=== PATIENT | male | born 1985 | race African-American/Black ===

== ENCOUNTER 2021-11-24 03:07 | Emergency (ER) | payer SELFPAY ==
[2021-11-24] VITALS (11 sets, daily range): BP systolic 100–150; BP diastolic 67–108; PULSE 82–104; RESP 13–21; TEMP 36.2; O2SAT 93–97
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
--- NOTE | 2021-11-24 03:14 | ECG_ITS ---
Measurements Intervals [place] Rate: 91 P: 11 TN: 171 QRS: 85 QRSD: 89 T: 14 QT: 352 QTc: 435 Interpretive Statements SINUS RHYTHM LEFT ATRIAL ENLARGEMENT [-0.15mV P WAVE IN V1/V2] LEFT VENTRICULAR HYPERTROPHY ST ELEVATION CONSISTENT WITH EARLY REPOLARIZATION ABNORMAL ECG Electronically Signed On 11-24-2021 11:07:17 CDT by Guero Roberts M.D.
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
--- NOTE | 2021-11-24 03:18 | PC.NURSE ---
Bedside glucose is 111.
[2021-11-24 03:21] LABS: Glucose Point of Care 111 mg/dl (65-105)
[2021-11-24] MEDS: THIAMINE HCL 200 MG/2 ML VIAL 100 MG IV PUSH (03:26)
[2021-11-24] MEDS: SODIUM CHLORIDE 0.9% IV 1,000 ML 999 ML IV CONT (03:26)
--- NOTE | 2021-11-24 03:29 | PC.NURSE ---
Patient taken to CT.
[2021-11-24 03:36] LABS: Basophils Absolute Auto 0.1 K/mm3 (0.0-0.1); Basophils Percent Auto 0.6 % (0.2-1.2); Eosinophils Absolute Auto 0.1 K/mm3 (0-0.3); Eosinophils Percent Auto 0.8 % (0-4.4); Hematocrit 40.5 % (42.0-52.0); Hemoglobin 13.7 g/dL (14.0-18.0); Immature Granulocyte Absolute 0.02 K/mm3 (0.00-0.031); Immature Granulocyte Percent A 0.3 % (0-0.5); Lymphocytes Absolute Auto 1.75 K/mm3 (0.9-3.2); Lymphocytes Percent Auto 22.1 % (18.3-44.2); Mean Corpuscular HGB Conc 33.8 g/dl (32-36); Mean Corpuscular Volume 91.6 fl (80-100); Mean Platelet Volume 8.8 fl (7.4-10.4); Monocytes Absolute Auto 0.6 K/mm3 (0.1-0.6); Monocytes Percent Auto 7.1 % (2.6-8.5); Neutrophils Absolute Auto 5.5 K/mm3 (1.3-6.7); Neutrophils Percent Auto 69.1 % (45.5-73.1); Platelet Count Result 256 k/mm3 (150-375); Red Blood Count 4.42 M/mm3 (4.6-6.20); Red Cell Distribution Width 14.8 % (11.5-14.5); White Blood Count 7.9 K/mm3 (4.5-10.0)
[2021-11-24 03:42] LABS: Alanine Aminotransferase 29 U/L (6-50); Albumin Level 4.4 g/dL (3.5-5.1); Alkaline Phosphatase 87 U/L (38-126); Anion Gap 11 mmol/L (8-16); Aspartate Amino Transferase 40 U/L (17-59); Bilirubin,Total 0.2 mg/dL (0.2-1.3); Blood Urea Nitrogen 18 mg/dL (9-20); Calcium 8.8 mg/dL (8.4-10.2); Carbon Dioxide 26 mmol/L (22-30); Chloride 108 mmol/L (98-107); Estimated Glomerular Filt Rate > 60; Glucose 104 mg/dL (65-110); Potassium 3.5 mmol/L (3.4-5.0); Sodium 145 mmol/L (137-145)
[2021-11-24 04:08] LABS: Ammonia 21 umol/L (9-30)
[2021-11-24 04:14] LABS: Ethanol 437 mg/dL (<10)
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
--- NOTE | 2021-11-24 07:09 | PC.NURSE ---
Took report from maintenance technician 3rd shift nurse, pt is sleeping at this time, no s/s of distress.
--- NOTE | 2021-11-24 10:25 | PC.NURSE ---
Pt sleeping, said not able to urinate at this time
--- NOTE | 2021-11-24 12:47 | PC.NURSE ---
Costume Shop Manager spoke with Dr. Bernard and per Dr. Bernard do not order another ETOH level at thist time, just wake patient up and have him continue to call for a ride home. Costume Shop Manager woke patient up and informed patient to continue to make phone calls to find a ride home. Patient very sleepy and just moans at typewriter tester, patient sat up and looked at typewriter tester and rolled back over.
--- NOTE | 2021-11-24 13:01 | PC.NURSE ---
Patient approached the nurses station completely dressed and informed junior copywriter and other nurses that is is fixing to leave and we can't stop him. Patient informed patient of importance of a obtaining a ride and patient refused and stated again, You can't stop me and I'm leaving. I'm going to catch a bus. Dr. Bernard aware of patient's intention to leave and ability to walk out with steady gait. Patient alert and oriented x4, ambulatory with steady gait, and states I am going to catch the bus home. I don't have anyone to pick me up. Patient walked out of ED exit without difficulty.
== END 2021-11-24 13:16 | disposition left against medical advice (07) ==
PROVIDERS: Emergency Medicine; Emergency Provider General Practice
DX: S09.90XA Unspecified injury of head, initial encounter (principal); S00.211A Abrasion of right eyelid and periocular area, initial encounter; F10.120 Alcohol abuse with intoxication, uncomplicated; Y90.8 Blood alcohol level of 240 mg/100 ml or more; I10 Essential (primary) hypertension; F17.210 Nicotine dependence, cigarettes, uncomplicated; R94.31 Abnormal electrocardiogram [ECG] [EKG]; I51.7 Cardiomegaly
CPT/HCPCS: 36415; 70450; 80053; 80307; 82140; 82948; 85025; 93005; 96361; 96374; 99284; J3411; J7030

== ENCOUNTER 2023-11-15 00:04 | Emergency (ER) | payer BC, MEDICAID, SELFPAY ==
[2023-11-15] VITALS (29 sets, daily range): BP systolic 108–158; BP diastolic 76–108; PULSE 73–99; RESP 11–22; TEMP 36.7; O2SAT 96–100
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
[2023-11-15] MEDS: TETANUS,DIPHTHERIA,AC PERTUSSIS ADULT (0.5 ML) BOOSTRIX IM (00:19)
[2023-11-15 00:31] LABS: Basophils Percent Auto 0.6 % (0.2-1.2); Eosinophils Absolute Auto 0.1 K/mm3 (0-0.3); Eosinophils Percent Auto 0.9 % (0-4.4); Hematocrit 44.2 % (42.0-52.0); Hemoglobin 14.9 g/dL (14.0-18.0); Immature Granulocyte Absolute 0.02 K/mm3 (0.00-0.031); Immature Granulocyte Percent A 0.3 % (0-0.5); Lymphocytes Absolute Auto 2.79 K/mm3 (0.9-3.2); Lymphocytes Percent Auto 41.4 % (18.3-44.2); Mean Corpuscular HGB Conc 33.7 g/dl (32-36); Mean Corpuscular Hemoglobin 30.3 pg (26-34); Mean Corpuscular Volume 89.8 fl (80-100); Mean Platelet Volume 8.6 fl (7.4-10.4); Monocytes Absolute Auto 0.5 K/mm3 (0.1-0.6); Monocytes Percent Auto 7.6 % (2.6-8.5); Neutrophils Absolute Auto 3.3 K/mm3 (1.3-6.7); Neutrophils Percent Auto 49.2 % (45.5-73.1); Platelet Count Result 268 k/mm3 (150-375); Red Blood Count 4.92 M/mm3 (4.6-6.20); Red Cell Distribution Width 13.4 % (11.5-14.5); White Blood Count 6.7 K/mm3 (4.5-10.0)
[2023-11-15 00:41] LABS: Alanine Aminotransferase 25 U/L (6-50); Albumin Level 4.8 g/dL (3.5-5.1); Alkaline Phosphatase 87 U/L (38-126); Anion Gap 11 mmol/L (4-12); Aspartate Amino Transferase 35 U/L (17-59); Bilirubin,Total 0.4 mg/dL (0.2-1.3); Blood Urea Nitrogen 19 mg/dL (9-20); Carbon Dioxide 25 mmol/L (22-30); Chloride 110 mmol/L (98-107); Estimated CRCL calculation 76 ml/min; Estimated Glomerular Filt Rate > 60; Glucose 104 mg/dL (65-110); Potassium 4.3 mmol/L (3.4-5.0); Sodium 146 mmol/L (137-145)
[2023-11-15 01:22] LABS: Ethanol 388 mg/dL (<10)
--- NOTE | 2023-11-15 05:02 | PC.NURSE ---
Patient easily arousable to voice. Patient states he is unable to call anyone, has no money on him and does not have a ride home. teacher of gifted students notified. Patient resting on stretcher with eyes closed, visible chest rise and fall, VSS on monitor. Will continue to monitor and attempt for patient to get ride home.
--- NOTE | 2023-11-15 05:18 | PC.NURSE ---
Pt ambulatory to restroom with steady gait. States that he is ok if we try to call Varun on his contact info to attempt ride home. Attempted call and there was no answer, voice mail left. Pt c/o headache. VO for tylenol obtained from Dr Dunne. [place] provided to pt.
[2023-11-15] MEDS: ACETAMINOPHEN 500 MG TABLET 1000 MG PO (05:22)
--- NOTE | 2023-11-15 06:21 | PC.NURSE ---
Called patients emergency contact Varun, no answer, message was left.
--- NOTE | 2023-11-15 07:21 | PC.NURSE ---
Varun returned call and said that she will not be coming to pick him up. she is in [facility] and heading into work.
[2023-11-15 09:48] LABS: Ethanol 266 mg/dL (<10)
== END 2023-11-15 10:15 | disposition home or self-care (01) ==
PROVIDERS: Family Medicine; Emergency Provider Nurse Practitioner Family
DX: S01.111A Laceration without foreign body of right eyelid and periocular area, initial encounter (principal); F10.920 Alcohol use, unspecified with intoxication, uncomplicated; F17.210 Nicotine dependence, cigarettes, uncomplicated; I10 Essential (primary) hypertension; X58.XXXA Exposure to other specified factors, initial encounter; Z23 Encounter for immunization
CPT/HCPCS: 12011; 36415; 70450; 80053; 80307; 85025; 90471; 90715; 99284; A9270

== ENCOUNTER 2024-10-02 05:39 | Emergency (ER) | payer SELFPAY ==
[2024-10-02] VITALS (8 sets, daily range): BP systolic 110–160; BP diastolic 61–110; PULSE 68–90; RESP 11–23; TEMP 36.7; O2SAT 95–100
--- NOTE | ~2024-10-02 | XR_ITS ---
XR hip LT 2V w AP pelvis 10/02/2024 06:15 Indication: Pelvic pain. Status post fall. Procedure: AP pelvis and 2 views left hip Comparison: No prior studies for comparison. Findings: There is anatomic alignment. No fracture, subluxation or dislocation. No focal soft tissue abnormality. No foreign bodies. Impression: 1: No acute fracture. Reviewed, dictated and finalized at location A. Impression: 1: No acute fracture.
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
--- OUTSIDE RECORDS SUMMARY | 2024-10-02 07:10 | XMS_ITS | Clinical Summary ---
Author Organization [facility] Address [address] [place] [id number] Care Team Providers Care I&C Tech Name Role Phone Feroz Mustafa MD Primary Care Provider [phone] Allergies No known active allergies Medications AMLODIPINE 10 MG tabletIndications :Essential hypertension Take 1 tablet by mouth once daily 30 tablet 2 1 Active OMEPRAZOLE 40 MG capsuleIndication s:Essential hypertension,GERD (gastroesophageal reflux disease) Take 1 capsule by mouth once daily 30 capsule 2 1 Active Active Problems Problem Noted Date Diagnosed Date Alcohol dependence with unsp ecified alcohol-induced disorder ([facility]) 02/27/2020 Essential hypertension 02/27/2020 Resolved Problems Problem Noted Date Diagnosed Date Resolved Date Encounter for wellness examination in adult 02/27/2020 03/05/2020 Family History Medical History Relation Comments [place] Maternal Grandfather Coronary artery disease Mother Relation Status Comments Father Alive Maternal Grandfather Mother Alive Social History Tobacco Use Types Packs/Day Years Used Date Smoking Tobacco: Every Day Cigarettes Smokeless Tobacco: Never Alcohol Use Standard Drinks/Week Comments Yes 11.7 (1 standard dri nk = 0.6 oz pure alcohol) stopped drinking hard liquor December 2019 AUDIT-C Answer Date Recorded Q1: How often do you have a drink containing alcohol? 4 or more times a week 02/27/2020 Q2: How many drinks containi ng alcohol do you have on a typical day when you are drinking? 7 to 9 0 Q3: How often do you have si x or more drinks on one occasion? Daily or almost daily 02/27/2020 PHQ-2 Answer Date Recorded PHQ-2 Score - If the patient scores above 3, please move on to questions 3-9 0 10/01/2020 Sex and Gender Information Value Date Recorded Sex Assigned at Not on file Legal Sex Male 4:04 PM CDT Gender Identity Not on file Sexual Orientation Not on file Last Filed Vital Signs Vital Sign Reading Time Taken Comments Blood Pressure 126/84 10/01/2020 10:55 AM CDT Pulse 83 10/01/2020 10:55 AM CDT Temperature 37.3 C (99.1 F) 10/01/2020 10:55 AM CDT Respiratory Rate 17 10/01/2020 10:5 5 AM CDT Oxygen Saturation 98% 10/01/2020 10: 55 AM CDT Inhaled Oxygen Concentration - - Weight 78.8 kg (173 lb 12.8 oz) 021 10:55 AM CDT Height 182.9 cm (6') 10/01/2020 10:55 AM CDT Body Mass Index 23.57 10/01/2020 10:55 AM CDT Plan of Treatment Health Maintenance Due Date Last Done Comments Hepatitis C 2004 DTaP, Tdap and Td Vaccines ( 1 - Tdap) 2005 Hepatitis B Vaccines (1 of 3 - 19+ 3-dose series) 2005 Pneumococcal Vaccine: Pediat rics (0 to 5 Years) and At-Risk Patients (6 to 49 Years) (1 of 2 - PCV) 2005 Annual Physical 02/26/2021 02/27/2020 COVID-19 Vaccine (2023-2 5 season) 2024 HPV Vaccines Aged Out No longer eligi ble based on patient's age to complete this topic Meningococcal B Vaccine Aged Out No l onger eligible based on patient's age to complete this topic Meningococcal Vaccine Aged Out No derick terrie eligible based on patient's age to complete this topic RSV Immunizations Under 20 Months Aged Out No longer eligible based on patient's age to complete this topic Care Teams I&C Tech Relationship Specialty [place] [address] [place] [address] PCP - General FAMILY PRACTICE 10/31/19
[2024-10-02] MEDS: KETOROLAC 15 MG/ML VIAL (*BKC) IM (07:29)
== END 2024-10-02 07:37 | disposition home or self-care (01) ==
LOC: ANHED 07:09
PROVIDERS: Emergency Provider Emergency Medicine
DX: S79.912A Unspecified injury of left hip, initial encounter (principal); I10 Essential (primary) hypertension; F17.210 Nicotine dependence, cigarettes, uncomplicated; W18.09XA Striking against other object with subsequent fall, initial encounter
CPT/HCPCS: 73502; 96372; 99283; J1885